=== PATIENT | male | born 1960 | race Caucasian/White ===

== ENCOUNTER 2023-03-08 21:28 | Emergency (ER) | payer OTHER ==
[~2023-03-08] VITALS: Ht 180.3 cm; Wt 95.3 kg
[2023-03-08 22:04] LABS: CREATINE KINASE 181 IU/L (30-200)
[2023-03-08 22:06] LABS: ALBUMIN 4.4 g/dL (3.5-5.0); ALBUMIN/GLOBULIN RATIO 1.3 (0.8-2.0); ANION GAP 14.9 mmol/L (8-16); CALCIUM 9.7 mg/dL (8.4-10.2); CREATININE, SERUM 0.86 mg/dL (0.72-1.25); POTASSIUM 3.9 mmol/L (3.5-5.1)
[2023-03-08 22:35] LABS: BASOPHILS % 0.4 % (0.0-1.0); EOSINOPHILS # (AUTO) 0.1 (0.0-0.4); EOSINOPHILS % 1.1 % (0.0-6.0); HEMATOCRIT 45.8 % (38.2-49.6); LYMPHOCYTES # (AUTO) 2.6 (1.0-3.2); LYMPHOCYTES % 23.1 % (18.0-39.1); MEAN CORPUSCULAR HEMOGLOBIN 32.7 pg (28-32); MEAN CORPUSCULAR HGB CONC 34.9 g/dL (31-35); MEAN CORPUSCULAR VOLUME 93.5 fL (81-99); MONOCYTES # (AUTO) 0.7 (0.2-0.8); MONOCYTES % 6.1 % (4.4-11.3); NEUTROPHILS # (AUTO) 7.6 (2.1-6.9); PLATELET COUNT 149 x10e3/uL (140-360); RED CELL DISTRIBUTION WIDTH 12.6 % (11.7-14.4)
[2023-03-09] MEDS ORDERED: ONDANSETRON HCL INJ 2MG/ML 2ML 2 MG/ML VIAL IV STA (00:17)
[2023-03-09] MEDS ORDERED: METHYLPREDNISOLONE SOD SUCC 125 MG/2ML VIAL IV STA (00:17)
[2023-03-09] MEDS ORDERED: Morphine 4mg INJECTION 4 MG/ML INJ IV STA (00:17)
[2023-03-09] MEDS ORDERED: IOPAMIDOL 370 MG/ML 100 ML INFUS..BTL INJ ONE (01:49)
[2023-03-09] MEDS ORDERED: FENTANYL CITRATE/PF 100MCG/2 ML INJ ONE (02:29)
[2023-03-09] MEDS ORDERED: FENTANYL CITRATE/PF 100MCG/2 ML INJ IV ONE (02:45)
[2023-03-09] MEDS ORDERED: ULTRAM 50MG50 MG PO (03:10)
[2023-03-09] MEDS ORDERED: PREDNISONE20 MG PO (03:10)
[2023-03-09 03:24] VITALS: BP 136/77; PULSE 67; RESP 16; TEMP 98.6; O2SAT 100
== END 2023-03-09 03:24 | disposition home or self-care (01) ==
LOC: ER 21:31
DX: S01.81XA Laceration without foreign body of other part of head, initial encounter (principal); M25.561 Pain in right knee; W01.198A Fall on same level from slipping, tripping and stumbling with subsequent striking against other object, initial encounter; Y92.89 Other specified places as the place of occurrence of the external cause; Z20.822 Contact with and (suspected) exposure to COVID-19
CPT/HCPCS: 36415; 70450; 70481; 70486; 72125; 73562; 80053; 82550; 82553; 83880; 84484; 85025; 99284; J2270; J2405; J2543; J2930; J3010; Q9967; U0002